=== PATIENT | female | born 1955 | race Caucasian/White ===

== ENCOUNTER → 2016-07-30 | Day surgery (SDC) | payer OTHER ==
[~2016-07-30] MED LIST: CELEXA PO; DITROPAN5 MG PO; OXYBUTYNIN15 MG/BOTT PO; PRILOSEC40 MG PO; TRICOR PO
--- NOTE | ~2016-07-30 | OR ---
Unit #: [id number] #: [id number] Patient: ADRIAN MONTANA [id number] [address] [address] [id number] MR#: [id number] NAME: ADRIAN MONTANA ROOM: Date of Procedure: 07/30/2016 Admission Date: 07/30/2016 Surgeon: Nilay Knight M.D. : 1955 Attending Physician: Nilay Knight M.D. Primary Care Physician: Rodri Mcneal Jr., M.D. OPERATIVE REPORT PROCEDURE PERFORMED Colonoscopy with snare polypectomy. INDICATIONS FOR PROCEDURE The patient with personal history of polyps in the past. MEDICATIONS Monitored anesthesia. POSTOPERATIVE FINDINGS 1. Polyp, ascending colon, 6 mm, snared and sent for histopathology. 2. Prep was poor. Some areas not well visualized well. 3. Rest of the colon mucosa was normal to cecum. PLAN Repeat colonoscopy in 5 years. DESCRIPTION OF PROCEDURE The patient was explained of the procedure, risks, and benefits along with risks and benefits of anesthesia. She was brought to the endoscopy room. Propofol anesthesia was given. Rectal exam was done, which was normal. Colonoscope was lubricated, passed up the rectum, advanced under direct vision all the way to the cecum. Cecum was identified by ileocecal valve and appendiceal orifice. I then started to pull the scope out carefully looking. Polyp seen in the ascending colon was snared and sent for histopathology. Rest of the mucosa was normal and healthy. Prep was poor. Some areas not well visualized. I retroflexed in the rectum, small hemorrhoids seen. Scope was gently pulled out. She tolerated it well. Dictated by... Juan Jose Daily/shakeel TD: 07/31/2016 23:33 JOB #: [id number] CC: . Unit #: [id number] #: [id number] Patient: ADRIAN MONTANA OPERATIVE REPORT Page 1 of 1 X Nilay Knight MD X PROCEDURE OPERATIVE NOTE
== END | disposition home or self-care (01) ==
LOC: COPS 08:04
DX: Z12.11 Encounter for screening for malignant neoplasm of colon (principal); D12.2 Benign neoplasm of ascending colon; F17.210 Nicotine dependence, cigarettes, uncomplicated; K21.9 Gastro-esophageal reflux disease without esophagitis; E78.5 Hyperlipidemia, unspecified; Z86.010 Personal history of colon polyps; Z79.899 Other long term (current) drug therapy; Z90.710 Acquired absence of both cervix and uterus; Z90.49 Acquired absence of other specified parts of digestive tract
CPT/HCPCS: 88305; J2250